=== PATIENT | male | born 1965 | race Caucasian/White ===

== ENCOUNTER → 2018-11-03 08:45 | Outpatient (CLI) | payer OTHER, SELFPAY ==
[2018-11-03 10:47] LABS: Alanine Aminotransferase 162 IU/L (21-72); Albumin 4.6 g/dL (3.5-5.0); Albumin Globulin Ratio 1.4 (1.0-2.8); Alkaline Phosphatase 100 U/L (38-126); Aspartate Aminotransferase 140 IU/L (17-59); BUN Creatinine Ratio 15.6 (6-22); Bilirubin Total 0.6 mg/dL (0.2-1.3); Blood Urea Nitrogen 14 mg/dL (9-20); Calcium 9.3 mg/dL (8.4-10.2); Carbon Dioxide 28 mmol/L (22-32); Chloride 101 mmol/L (98-107); Cholesterol 254 mg/dL (140-199); Estimated Glomerular Filt Rate > 60.0 mL/min (>60); Globulin 3.3 g/dL (1.7-4.1); Glucose 96 mg/dL (70-100); HDL Cholesterol 102 mg/dL (40-60); HEMOLYSIS < 15 (0-50); LDL Cholesterol Calculated 130 mg/dL (<100); Potassium 4.8 mmol/L (3.4-5.1); Sodium 137 mmol/L (137-145); Total Protein 7.9 g/dL (6.3-8.2); Triglycerides 111 mg/dL (35-150)
== END ==
PROVIDERS: PCP Internal Medicine; Visit Provider Internal Medicine
DX: I10 Essential (primary) hypertension (principal); Z13.1 Encounter for screening for diabetes mellitus; Z13.6 Encounter for screening for cardiovascular disorders
CPT/HCPCS: 36415; 80053; 80061

== ENCOUNTER → 2020-02-03 10:10 | Outpatient (CLI) | payer OTHER, SELFPAY ==
[2020-02-03 10:52] LABS: INR 1.1 (0.9-1.3); Prothrombin Time 12.7 SECONDS (10.1-12.7)
[2020-02-03 10:58] LABS: Alanine Aminotransferase 32 IU/L (<50); Albumin 4.6 g/dL (3.5-5.0); Albumin Globulin Ratio 1.4 (1.0-2.8); Alkaline Phosphatase 69 U/L (38-126); Aspartate Aminotransferase 36 IU/L (17-59); Bilirubin Total 0.5 mg/dL (0.2-1.3); Bilirubin Unconjugated 0.5 mg/dL (0.0-1.1); Creatine Kinase 56 U/L (55-170); Globulin 3.4 g/dL (1.7-4.1); HEMOLYSIS 16 (0-50)
[2020-02-03 11:31] LABS: Hepatitis B Surface Antigen NEGATIVE s/c (NEGATIVE)
[2020-02-03 11:54] LABS: Hep C Virus Ab w/Reflex Quant NEGATIVE s/c (NEGATIVE)
[2020-02-03 14:27] LABS: HEMOLYSIS < 15 (0-50); Iron 140 ug/dL (49-181)
[2020-02-03 14:38] LABS: Percent Iron Saturation 45 % (20-50); Total Iron Binding Capacity 310 ug/dL (261-462); Transferrin 247 mg/dL (206-381)
[2020-02-03 15:00] LABS: TSH w/ Reflex to FT4 2.69 uIU/mL (0.47-4.68)
[2020-02-04 06:10] LABS: Ceruloplasmin 24.1 mg/dL (16.0-31.0)
[2020-02-05 04:07] LABS: Hepatitis B Surf Ab Qualitativ Non Reactive (.)
[2020-02-06 12:09] LABS: Smooth Muscle Antibody 14 Units (0-19)
[2020-02-07 05:11] LABS: Deamidated Gliadin IgA 10 units (0-19); Deamidated Gliadin IgG 8 units (0-19); IGA 448 mg/dL (90-386); t-Transglutaminase IgA <2 U/mL (0-3)
[2020-02-08 17:08] LABS: ANA Screen, IFA Positive (.)
== END ==
PROVIDERS: PCP Internal Medicine; Referring Provider Internal Medicine; Visit Provider Internal Medicine
DX: I10 Essential (primary) hypertension (principal); R94.5 Abnormal results of liver function studies
CPT/HCPCS: 36415; 80076; 82390; 82550; 82784; 83516; 83540; 83550; 84443; 85610; 86038; 86706; 86803; 87340

== ENCOUNTER → 2024-09-19 08:11 | Outpatient (CLI) | payer OTHER, SELFPAY ==
[2024-09-19 09:16] LABS: Alanine Aminotransferase 83 IU/L (<50); Albumin 4.5 g/dL (3.5-5.0); Albumin Globulin Ratio 1.3 (1.0-2.8); Alkaline Phosphatase 89 U/L (38-126); Aspartate Aminotransferase 87 IU/L (17-59); BUN Creatinine Ratio 18.3 (6-22); Bilirubin Total 0.6 mg/dL (0.2-1.3); Blood Urea Nitrogen 17 mg/dL (9-20); Calcium 9.3 mg/dL (8.4-10.2); Carbon Dioxide 27 mmol/L (22-32); Chloride 100 mmol/L (98-107); Cholesterol 275 mg/dL (140-199); Estimated Glomerular Filt Rate > 60 mL/min (>60); Globulin 3.6 g/dL (1.7-4.1); Glucose 105 mg/dL (70-100); HDL Cholesterol 67 mg/dL (40-60); HEMOLYSIS 27 (0-50); LDL Cholesterol Calculated 154 mg/dL (<100); Potassium 4.2 mmol/L (3.4-5.1); Sodium 136 mmol/L (137-145); Total Protein 8.1 g/dL (6.3-8.2); Triglycerides 268 mg/dL (35-150)
[2024-09-19 09:44] LABS: Prostate Specific Antigen Scrn 4.82 ng/mL (0.1-4.0)
== END ==
PROVIDERS: PCP Internal Medicine; Referring Provider Internal Medicine; Visit Provider Internal Medicine
DX: Z12.5 Encounter for screening for malignant neoplasm of prostate (principal); R94.5 Abnormal results of liver function studies; I10 Essential (primary) hypertension; Z13.6 Encounter for screening for cardiovascular disorders
CPT/HCPCS: 36415; 80053; 80061; G0103

== ENCOUNTER → 2024-09-22 12:01 | Outpatient (CLI) | payer OTHER, SELFPAY ==
--- NOTE | 2024-09-22 12:02 | DI.RAD.S_ITS ---
PROCEDURE: XR HAND LT MIN 3V INDICATIONS: l hand pain/ 2nd MCP joint pain TECHNIQUE: 3 views of the hand(s) acquired. COMPARISON: None. FINDINGS: Bones: There is mild subluxation at the 3rd distal interphalangeal joint. Otherwise, no fractures or dislocations. Carpal bones are normally aligned. No suspicious bony lesions. Soft tissues: A small radiodense foreign body is noted along the lateral aspect of the distal radius, incompletely visualized on this exam. No suspicious soft tissue calcifications. IMPRESSION: No evidence of acute osseous abnormality. Mild 3rd DIP subluxation and small incompletely visualized radiodense foreign body within the soft tissues lateral to the distal radial diaphysis. Dictated by: Yash Cervantes M.D. on 09/22/2024 at 16:37 Approved by: Yash Cervantes M.D. on 09/22/2024 at 16:39
[2024-09-23 08:09] LABS: PSA Free % 10.2 % (.); PSA, Total 4.8 ng/mL (0.0-4.0)
== END ==
PROVIDERS: PCP Internal Medicine; Referring Provider Internal Medicine; Visit Provider Internal Medicine
DX: S63.243A Subluxation of distal interphalangeal joint of left middle finger, initial encounter (principal); M79.5 Residual foreign body in soft tissue; M79.642 Pain in left hand; R97.20 Elevated prostate specific antigen [PSA]
CPT/HCPCS: 36415; 73130; 84153; 84154

== ENCOUNTER → 2024-10-26 09:01 | Outpatient (CLI) | payer OTHER, SELFPAY ==
--- NOTE | 2024-10-26 09:02 | DI.MRI.S_ITS ---
PROCEDURE: MR PELVIC PROSTATE PROTOCOL INDICATIONS: Elevated PSA TECHNIQUE: Coronal HASTE, axial T1 FSE with fat saturation, 3-plane nonbreath-hold T2 FSE. After the administration of contrast, dynamic axial, delayed axial and coronal VIBE or 2-D FLASH with fat saturation through the pelvis. Diffusion weighted imaging and ADC was performed. COMPARISON: None. FINDINGS: Image quality: Diffusion weighted and dynamic contrast enhanced images are diagnostic. Prostate: Gland size is 4.5 x 3.1 x 3.8 cm; ellipsoid gland volume is 27.6 mL. Borderline elevated PSA density is 0.174 Transitional zone heterogenous nodules are present, either well encapsulated or mostly encapsulated, compatible with PI-RADS 1 or 2 likely BPH nodules. 9 x 7 x 8 mm right apex peripheral zone lesion (4/13, 6/9). DWI score 3. DCE positive. T2 score 3. PI-RADS 4. No definite extracapsular disease or seminal vesicle involvement. Genitourinary system: Trabeculated bladder and wall thickening, commonly due to chronic obstruction. Bowel and peritoneum: No bowel obstruction or drainable ascites Nodes and vessels: No enlarged lymph nodes by size criteria. No aneurysmal vessel identified Soft tissues: No significant pelvic wall abnormality Bones: No aggressive appearing osseous enhancement IMPRESSION: PI-RADS 4 lesion is seen at the right apex peripheral zone. This measures up to 9 mm. No definite seminal vesicle involvement or extracapsular disease. No pelvic lymphadenopathy by size criteria. No aggressive osseous abnormality. Dictated by: Jhonatan Tapia M.D. on 10/26/2024 at 11:02 Approved by: Jhonatan Tapia M.D. on 10/26/2024 at 11:06
== END ==
LOC: MRI 09:01
PROVIDERS: PCP Internal Medicine; Referring Provider Urology; Visit Provider Urology
DX: N42.9 Disorder of prostate, unspecified (principal); N32.89 Other specified disorders of bladder; R97.20 Elevated prostate specific antigen [PSA]
CPT/HCPCS: 72197; A9579

== ENCOUNTER → 2025-01-04 10:02 | Outpatient (CLI) | payer OTHER, SELFPAY ==
--- NOTE | 2025-01-04 10:04 | DI.CT.S_ITS ---
PROCEDURE: CT ABDOMEN PELVIS W CON INDICATIONS: Prostate cancer TECHNIQUE: After the administration of intravenous contrast, axial sections acquired from the lung bases to the pubic symphysis. Coronal and sagittal reformats were performed. For radiation dose reduction, the following was used: automated exposure control, adjustment of mA and/or kV according to patient size. COMPARISON: [facility], MR, MR PELVIC PROSTATE PROTOCOL, 10/26/2024, 9:07. FINDINGS: Image quality: Diagnostic. Lower Chest: Mild bibasilar atelectasis. Small hiatal hernia. ABDOMEN: Liver: No solid mass. There is diffuse hypoattenuation of the liver parenchyma relative to the spleen compatible with hepatic steatosis. Gallbladder: No radiopaque gallstones or wall thickening. Biliary ducts: No biliary dilation. Pancreas: Homogeneous enhancement without focal lesions or pancreatic ductal dilatation. No peripancreatic inflammation or organized fluid collections. Spleen: Size is within normal limits. Incidental splenule. Adrenal Glands: No adrenal nodules. Kidneys and Ureters: No hydronephrosis. No solid mass. No complex renal cystic lesion which requires follow up. Bilateral ureters are normal in course and caliber. Stomach and Bowel: Normal colonic caliber, without significant wall thickening. No evidence for small bowel obstruction or associated inflammatory changes. Normal appendix. Peritoneum: No abnormal intraperitoneal fluid. No free air. Ventral Wall: There is a fat-containing umbilical hernia without acute inflammation. Abdominal Nodes: No retroperitoneal or mesenteric adenopathy by size criteria. Vessels: Aorta and inferior vena cava are normal in size. PELVIS: Pelvic Organs: Moderate prostatomegaly which appears heterogeneous. Findings are similar compared to pelvic MRI. No evidence for adjacent pelvic adenopathy. No suspicious pelvic sidewall adenopathy. Bladder: No bladder wall thickening, accounting for underdistention. Pelvic Nodes: No enlarged lymph nodes. Miscellaneous: No inguinal hernias are seen. Bones: No aggressive osseous abnormality. Visualized osseous structures appear intact without acute fracture or focal destructive lesion. No acute compression fractures of the imaged spine. IMPRESSION: Heterogeneous, enlarged prostate gland without evidence for adjacent pelvic lymph nodes or suspicious pelvic sidewall adenopathy. No evidence for distant metastases. Other chronic/nonacute findings as above. Dictated by: Zana Anna M.D. on 01/04/2025 at 14:23 Approved by: Zana Anna M.D. on 01/04/2025 at 14:29
--- NOTE | 2025-01-04 10:30 | DI.NM.S_ITS ---
PROCEDURE: NM BONE SCAN WHOLE BODY RADIOPHARMACEUTICAL: 21.4 mCi Tc-99m MDP IV. INDICATIONS: Prostate cancer TECHNIQUE: Delayed whole-body scintigrams were obtained approximately 3-4 hours after intravenous injection of radiotracer. Anterior and posterior views were acquired from vertex to feet. Additional left and right oblique views of the pelvis were obtained. COMPARISON: [facility], CT, CT ABDOMEN PELVIS W CON, 01/04/2025, 11:27. FINDINGS/IMPRESSION: No suspicious radiotracer uptake. Degenerative uptake in the shoulders. Dictated by: Keanu Cox M.D. on 01/05/2025 at 10:18 Approved by: Keanu Cox M.D. on 01/05/2025 at 10:21
[2025-01-04 10:34] LABS: Estimated Glomerular Filt Rate > 60 mL/min (>60)
== END ==
LOC: NUCM 10:03
PROVIDERS: PCP Internal Medicine; Referring Provider Urology; Visit Provider Urology
DX: C61 Malignant neoplasm of prostate (principal); R97.20 Elevated prostate specific antigen [PSA]; N40.0 Benign prostatic hyperplasia without lower urinary tract symptoms; J98.11 Atelectasis; K44.9 Diaphragmatic hernia without obstruction or gangrene; K42.9 Umbilical hernia without obstruction or gangrene; Z72.0 Tobacco use
CPT/HCPCS: 36415; 74177; 78306; 82565; A9503; Q9967

== ENCOUNTER → 2025-07-05 08:29 | Outpatient (CLI) | payer OTHER, SELFPAY ==
[2025-07-05 09:46] LABS: Prostate Specific Antigen 4.50 ng/mL (0.10-4.00)
== END ==
PROVIDERS: PCP Internal Medicine; Referring Provider Urology; Visit Provider Urology
DX: C61 Malignant neoplasm of prostate (principal)
CPT/HCPCS: 36415; 84153